=== PATIENT | male | born 1965 | race Caucasian/White ===

== ENCOUNTER 2019-01-26 22:04 | Emergency (ER) | payer OTHER, SELFPAY ==
--- NOTE | 2019-01-26 22:53 | RAD ---
THREE VIEWS RIGHT HAND: 01/26/19 HISTORY: Fall, right hand pain. AP, lateral, and oblique views right hand obtained. Three views right hand demonstrates no evidence of right hand fractures, subluxations, or bony lesion s. Degenerative changes seen in the articulation of the fifth carpometacarpal joint. IMPRESSION: No evidence of acute right hand abnormality seen. POS: [facility]
[2019-01-26] MEDS ORDERED: Acetaminophen 500 MG TAB ONE (23:47)
== END 2019-01-26 23:54 | disposition home or self-care (01) ==
LOC: ERS 22:04
DX: S60.211A Contusion of right wrist, initial encounter (principal); W18.30XA Fall on same level, unspecified, initial encounter
CPT/HCPCS: 29125